=== PATIENT | female | born 2000 | race Caucasian/White ===

== ENCOUNTER 2022-04-04 06:36 | Emergency (ER) | payer SELFPAY ==
[~2022-04-04] VITALS: Ht 177.8 cm; Wt 69.4 kg
[2022-04-04 06:45] VITALS: BP_SYST 158
--- NOTE | 2022-04-04 06:45 | NUR ---
PT ASSISTED STRAIGHT TO BED 1 AND PLACED ON MONITORS AND PT WAS TRIAGE AT BEDSIDE.
--- NOTE | 2022-04-04 06:50 | NUR ---
Pt to bed 1 at this time stating "I want to come back". I asked pt what she means by this and pt states "I want to not be high anymore". Pt tells me she took cocaine, LSD, alcohol, and marijuana in the last 24 hours. Pt states she has auditory and visual hallucinations at this time. Pt denies suicidal or homicidal ideations. Pt placed on metal fabricating supervisor. pulse oximetry on. bed in low position. side rails up.
--- NOTE | 2022-04-04 07:09 | NUR ---
REPORT RECEIVED FROM JENA WEISS FOR CONTINUING CARE
--- NOTE | 2022-04-04 07:10 | NUR ---
ER DR. SAAVEDRA AT THE BEDSIDE EXAMINING PT
--- NOTE | 2022-04-04 07:11 | NUR ---
Assumed care of patient after receiving report from JENA Luke. Patient came to ER c/o aud and vis hallucinations caused by use of alcohol, cocaine and LSD. She was resting comfortably when assessed. Patient is A&Ox4, calm and cooperative. She appears in no signs of acute distress and denies preexisting medical conditions. Will continue to care for patient based on provider's orders.
[2022-04-04] MEDS ORDERED: NACL 0.9% 1,000 ML IV ONE ×2 (07:15→09:15)
--- NOTE | 2022-04-04 07:25 | NUR ---
PT MOVED TO ER BED 5 FOR PRIVACY AND COMFORT
[2022-04-04] MEDS ORDERED: LORazepam 2 MG/ML VIAL IVP ONE (07:30)
--- NOTE | 2022-04-04 07:42 | NUR ---
# 20 gauge angiocath placed to LAC. Use of asceptic technique. Opsite placed over site. Blood return noted. Blood for lab drawn from site. Flushed with 10 cc of normal saline. No evidence of infiltration noted. Patient tolerated well. Addendum: 04/04/22 at 0752 by [email or web address] # 20 gauge angiocath placed to RAC. Use of asceptic technique. Opsite placed over site. Blood return noted. Blood for lab drawn from site. Flushed with 10 cc of normal saline. No evidence of infiltration noted. Patient tolerated well.
[2022-04-04 08:02] LABS: BASOPHILS # (AUTO) 0.1 K/uL (0.0-0.2); BASOPHILS % (AUTO) 0.7 % (0.0-2.0); EOSINOPHILS % (AUTO) 0.1 % (0.0-4.0); HEMATOCRIT 41.9 % (36-48); HEMOGLOBIN 14.2 g/dL (12.0-16.0); LYMPHOCYTES # (AUTO) 0.8 K/uL (1.0-5.5); LYMPHOCYTES % (AUTO) 8.1 % (20.5-51.5); MEAN CORPUSCULAR HEMOGLOBIN 30 pg (27-31); MEAN CORPUSCULAR HGB CONC 34 % (32-36); MEAN CORPUSCULAR VOLUME 89 fL (79.0-98.0); MONOCYTES # (AUTO) 0.5 K/uL (0.0-1.0); MONOCYTES % (AUTO) 4.7 % (1.7-9.3); NEUTROPHILS # (AUTO) 8.8 K/uL (1.8-7.7); NEUTROPHILS % (AUTO) 86.4 % (40.0-70.0); PLATELET COUNT (AUTO) 173 K/uL (130-430); RED BLOOD CELL COUNT(AUTO) 4.71 MIL/uL (4.2-6.2); RED CELL DISTRIBUTION WIDTH 13.7 % (9.0-15.0); WHITE BLOOD COUNT (AUTO) 10.2 K/uL (4.8-10.8)
[2022-04-04 08:05] LABS: ANION GAP 18 (5-15); CHLORIDE 102 mmol/L (98-107); CREATININE 0.75 mg/dL (0.55-1.30); GLUCOSE 90 mg/dL (70-99); POTASSIUM 3.2 mmol/L (3.5-5.1); SODIUM SERUM 137 mmol/L (136-145); UREA NITROGEN, BLOOD 3 mg/dL (8-21)
[2022-04-04 08:11] LABS: GFR AFRICAN AMERICAN 123 mL/min (>90)
[2022-04-04 08:21] LABS: ALANINE AMINOTRANSFERASE 12 U/L (12-78); ALBUMIN 3.8 g/dL (3.4-4.8); ASPARTATE AMINOTRANSFERASE 19 U/L (10-37); TOTAL BILIRUBIN 0.3 mg/dL (0.0-1.0)
[2022-04-04 08:26] LABS: HCG,QUANTITATIVE 1 mIU/ML (0-6)
[2022-04-04] MEDS ORDERED: POTASSIUM CHLORIDE 20 MEQ TAB.PRT.SR PO ONE (09:30)
[2022-04-04 09:39] LABS: BILIRUBIN,URINE NEGATIVE (NEGATIVE); BLOOD, URINE 3+ (NEGATIVE); CLARITY/URINE CLEAR (CLEAR); COLOR,URINE YELLOW (YELLOW); GLUCOSE,URINE NEGATIVE (NEGATIVE); KETONES,URINE 2+ (NEGATIVE); LEUKOCYTE ESTERASE ,URINE NEGATIVE (NEGATIVE); NITRITE, URINE NEGATIVE (NEGATIVE); PROTEIN URINE TRACE (NEGATIVE); UROBILINOGEN,URINE 0.2 (0.2-1.0)
[2022-04-04 09:42] LABS: BARBITURATE, URINE NEGATIVE (NEG <=200)
[2022-04-04 09:43] LABS: BENZODIAZEPINE, URINE NEGATIVE (NEG <=150); CANNABINOID, URINE POSITIVE (NEG <=50); COCAINE, URINE POSITIVE (NEG <=150); METHAMPHETAMINES SCREEN,URINE POSITIVE (NEG <=500); OPIATE, URINE NEGATIVE (NEG <=100); PHENCYCLIDINE SCREEN,URINE NEGATIVE (NEG <=25); UR TRICYCLIC ANTIDEPRESSANTS NEGATIVE (NEG <=300); URINE AMPHETAMINE POSITIVE (NEG <=500); URINE METHADONE NEGATIVE (NEG <=200); URINE OXYCODONE SCREEN NEGATIVE (NEG <=100); URINE PROPOXYPHENE SCREEN NEGATIVE (NEG <=300)
[2022-04-04 10:01] LABS: BACTERIA,URINE RARE /HPF (None Seen); WBC,URINE 0-3 /HPF (0-3)
[2022-04-04] MEDS ORDERED: PROCHLORPERAZINE EDISYLATE 10 MG/2 ML VIAL IVP ONE (11:00)
[2022-04-04] MEDS ORDERED: BENZTROPINE MESYLATE 2 MG/ 2 ML AMP IVP ONE (11:00)
--- NOTE | 2022-04-04 12:17 | NUR ---
Pt moved to [facility] to complete fluids.
[2022-04-04] MEDS ORDERED: POTASSIUM CHLORIDE 20 MEQ TAB.PRT.SR ONE (13:04)
[2022-04-04 13:30] VITALS: BP_SYST 118
--- NOTE | 2022-04-04 18:48 | NUR ---
Patient given written and verbal discharge instructions and verbalizes understanding. ER MD discussed with patient the results and treatment provided. Patient in stable condition. ID arm band removed. IV catheter removed intact and dressing applied, no active bleeding. Opportunity for questions provided and answered. Medication side effect fact sheet provided. Addendum: 04/04/22 at 1848 by [email or web address] Patient given written and verbal discharge instructions and verbalizes understanding. ER MD discussed with patient the results and treatment provided. Patient in stable condition. ID arm band removed. IV catheter removed intact and dressing applied, no active bleeding. Opportunity for questions provided and answered. Medication side effect fact sheet provided.
== END 2022-04-04 13:30 | disposition home or self-care (01) ==
LOC: SED 06:36
DX: F41.9 Anxiety disorder, unspecified (principal); E87.6 Hypokalemia; E86.0 Dehydration; F19.10 Other psychoactive substance abuse, uncomplicated; F12.90 Cannabis use, unspecified, uncomplicated; Z79.899 Other long term (current) drug therapy
CPT/HCPCS: 36415; 80053; 80307; 81000; 83735; 84484; 84702; 85025; 93005; 96361; 96374; 99284; J2060; J7030